=== PATIENT | male | born 1950 | race Caucasian/White ===

== ENCOUNTER 2025-10-12 08:09 | Outpatient (CLI) | payer MEDICARE, BC | END 2025-10-12 08:10 | disposition home or self-care (01) | LOC: CSHCT 08:09 | PROVIDERS: ATTEND Family Medicine | DX: K76.0 Fatty (change of) liver, not elsewhere classified (principal); N28.1 Cyst of kidney, acquired; N21.0 Calculus in bladder | CPT/HCPCS: 74176 ==